=== PATIENT | male | born 1995 ===

== ENCOUNTER 2019-01-01 12:22 | Emergency (ER) | payer OTHER ==
[2019-01-01 12:39] VITALS: RESP 18; TEMP 97.8; O2SAT 100
[2019-01-01 12:43] VITALS: BMI 20.1
[2019-01-01] MEDS ORDERED: Silver Nitrate Topical - Stick TOP ONE (13:36)
[2019-01-01] MEDS ORDERED: TDAP Vaccine 0.5 mL Syr IM ONE (14:39)
[2019-01-01 14:51] VITALS: BP 141/74; PULSE 72
[2019-01-01] MEDS ORDERED: Bacitracin 500 Units/gm Oint Foilpak UD ONE (14:53)
--- NOTE | 2019-01-01 14:54 | ED PDOC ---
Arrival/HPI - General Historian: Patient - History of Present Illness Narrative History of Present Illness (Text): 01/01/19 14:49 Patient is a 23 old male with no significant past medical history of presenting to [facility] and Emergency Department due to laceration of the first digit on his left hand. 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 Patient states that the scissors used to cut wires slip and subsequently patient cut his thumb. Patient also reports that he has been unable to control the bleeding from the first digit during this time. Denies any numbness tingling has full range of motion within the first digit, no further complaints reported. Patient reports that he has not had a tetanus injection within the last 10 years. <Babak Easton - Last Filed: 01/01/19 14:54> <Gurjit Morel - Last Filed: 01/01/19 21:43> - General Chief Complaint: Abnormal Skin Integrity Time Seen by Provider: 01/01/19 12:53 Past Medical History - Provider Review Nursing Documentation Reviewed: Yes - Infectious Disease Hx of Infectious Diseases: None - Psychiatric Hx Substance Use: No <Babak Easton - Last Filed: 01/01/19 14:54> Family/Social History - Physician Review Nursing Documentation Reviewed: Yes Family/Social History: No Known Family HX, Unknown Family HX Smoking Status: Never Smoked Hx Alcohol Use: No Hx Substance Use: No <Babak Easton - Last Filed: 01/01/19 14:54> Allergies/Home Meds <Babak Easton - Last Filed: 01/01/19 14:54> <Gujrit Morel - Last Filed: 01/01/19 21:43> Allergies/Adverse Reactions: Allergies No Known Allergies Allergy (Verified 01/01/19 12:46) Review of Systems - Review of Systems Constitutional: Normal Eyes: Normal ENT: Normal Respiratory: Normal Cardiovascular: Normal Gastrointestinal: Normal Genitourinary Male: Normal Musculoskeletal: Normal Skin: Laceration Neurological: Normal Endocrine: Normal Hemo/Lymphatic: Normal. absent: Easy Bleeding, Easy Bruising Psychiatric: Normal <Babak Easton - Last Filed: 01/01/19 14:54> Physical Exam Vital Signs Temp Pulse Resp BP Pulse Ox 01/01/19 12:39 97.8 F 74 18 156/81 H 100 Temperature: Afebrile Blood Pressure: Hypertensive Pulse: Regular Respiratory Rate: Normal Appearance: Positive for: Well-Appearing, Non-Toxic, Comfortable Pain Distress: None Mental Status: Positive for: Alert and Oriented X 3 - Systems Exam Head: Present: Atraumatic, Normocephalic Pupils: Present: PERRL Extroacular Muscles: Present: EOMI Conjunctiva: Present: Normal Mouth: Present: Moist Mucous Membranes Neck: Present: Normal Range of Motion Respiratory/Chest: Present: Clear to Auscultation, Good Air Exchange. No: Respiratory Distress, Accessory Muscle Use Cardiovascular: Present: Regular Rate and Rhythm, Normal S1, S2. No: Murmurs Abdomen: No: Tenderness, Distention, Peritoneal Signs Back: Present: Normal Inspection Upper Extremity: Present: Normal Inspection. No: Cyanosis, Edema Lower Extremity: Present: Normal Inspection. No: Edema Neurological: Present: GCS=15, CN II-XII Intact, Speech Normal Skin: Present: Warm, Dry, Normal Color, Laceration (Left hand, first digit, Perez aspect. 3 to 5 mm wide, 1 mm across, clean edges, profusely hemorrhaging). No: Rashes Psychiatric: Present: Alert, Oriented x 3, Normal Insight, Normal Concentration <Babak Easton - Last Filed: 01/01/19 14:54> Vital Signs Temp Pulse Resp BP Pulse Ox 01/01/19 14:22 72 18 141/74 100 01/01/19 12:39 97.8 F 74 18 156/81 H 100 <Gurjit Morel - Last Filed: 01/01/19 21:43> Medical Decision Making ED Course and Treatment: 01/01/19 14:58 Overall clean wound, with diffuse hemorrhaging. The Wound was thoroughly washed with warm soap and water. Direct pressure was applied with clean gauze for over 15 minutes. Pressure was unable to control bleeding, wound was subsequently cauterized with silver nitrate stick. Hemorrhage was subsequently controlled, and observed for 45 minutes. No signs of recurrent bleeding appreciated. Patient will be discharged a wet antibiotics, as well as a referral to hand specialist in case one does not heal appropriately. - Medication Orders Current Medication Orders: Discontinued Medications Silver Nitrate (Silver Nitrate Topical Stick) 1 swa TOP ONCE ONE Stop: 01/01/19 13:37 Tetanus/Reduced Diphtheria/Acell Pertussis (Boostrix Vaccine Inj) 0.5 ml IM .O NCE ONE Stop: 01/01/19 14:40 <Babak Easton - Last Filed: 01/01/19 14:54> ED Course and Treatment: 01/01/19 21:42 patient seen and examined by myself, high risk wound to the finger, tetanus updated, empiric abx as this was a finger lac. there was no debris upon visual inspection. - Medication Orders Current Medication Orders: Discontinued Medications Silver Nitrate (Silver Nitrate Topical Stick) 1 swa TOP ONCE ONE Stop: 01/01/19 13:37 Tetanus/Reduced Diphtheria/Acell Pertussis (Boostrix Vaccine Inj) 0.5 ml IM .ONCE ONE Stop: 01/01/19 14:40 Last Admin: 01/01/19 14:52 Dose: 0.5 ml Immunization Registry Document 01/01/19 14:52 KV (Rec: 01/01/19 14:56 KV [facility] [id number] [facility] [place] 01/01/19 <Gurjit Morel - Last Filed: 01/01/19 21:43> - PA / CARBONATION TESTER / Resident Statement / has reviewed & agrees with the documentation as recorded. / has examined the patient and agrees with the treatment plan. <Gurjit Morel - Last Filed: 01/01/19 21:43> Disposition/Present on Arrival - Present on Arrival Any Indicators Present on Arrival: No History of DVT/PE: No History of Uncontrolled Diabetes: No Urinary Catheter: No History of Decub. Ulcer: No History Surgical Site Infection Following: None - Disposition Have Diagnosis and Disposition been Completed?: Yes Disposition Time: 15:07 <Babak Easton - Last Filed: 01/01/19 14:54> <Gurjit Morel - Last Filed: 01/01/19 21:43> - Disposition Diagnosis: Laceration of finger Disposition: HOME/ ROUTINE Condition: IMPROVED Discharge Instructions (ExitCare): Wound Care (DC) Additional Instructions: return for any new or worsening symptoms especially fever greater than 100.4, increased redness of the finger, increased swelling of the finger, red streaks extending up the hand. follow up with a hand specialist to ensure full healing of the finger. Prescriptions: Ciprofloxacin [Cipro] 500 mg PO BID 7 Days #14 tab Referrals: Sangeetha Laura MD [Staff Provider] - Follow up with primary Dante Colin MD [Staff Provider] - Follow up with primary Forms: [facility] ([facility]ami), WORK NOTE
== END 2019-01-01 15:08 | disposition home or self-care (01) ==
LOC: ED 12:22
DX: S61.012A Laceration without foreign body of left thumb without damage to nail, initial encounter (principal); W45.8XXA Other foreign body or object entering through skin, initial encounter; Y99.0 Civilian activity done for income or pay; Z23 Encounter for immunization